=== PATIENT | male | born 1990 | race Caucasian/White ===

== ENCOUNTER 2017-06-15 19:16 | Emergency (ER) | payer MEDICAID ==
[~2017-06-15] VITALS: Ht 167.6 cm; Wt 59.0 kg
[2017-06-15] MEDS ORDERED: ALPRAZOLAM 2 MG (19:39)
--- NOTE | 2017-06-15 19:40 | NUR ---
PT STATES HE HAS A HX OF ANXIETY/PANIC ATTACKS FOR WHICH HE TAKES 2MG ALPRAZOLAM. PT ALSO STATES HE HAD RAN OUT OF MED, AND REQUESTS A REFILL. ARRIVED TO ER AFTER EXPERIENCING A PANIC ATTACK TODAY WHILE DRIVING ON [employer].
--- NOTE | 2017-06-15 20:25 | NUR ---
DARIA MOSS AT BEDSIDE FOR MSE.
--- NOTE | 2017-06-15 20:35 | NUR ---
Patient discharged to home in stable conditon. Written and verbal after care instructions given. Patient verbalizes understanding of instructions. Ambulated from ER w/ steady gait. Pt took all personal belongings.
[2017-06-15 20:39] VITALS: BP 147/74
== END 2017-06-15 20:40 | disposition home or self-care (01) ==
LOC: ER 19:18
DX: F41.9 Anxiety disorder, unspecified (principal)
CPT/HCPCS: A4663

== ENCOUNTER 2018-01-06 20:06 | Emergency (ER) | payer SELFPAY ==
[~2018-01-06] VITALS: Ht 170.2 cm; Wt 56.7 kg
[~2018-01-06 20:06] MED LIST: ALPRAZOLAM 2 MG
--- NOTE | 2018-01-06 21:30 | NUR ---
Called patient to be triaged. Patient not present
--- NOTE | 2018-01-07 00:14 | NUR ---
Xray at bedside.
--- NOTE | 2018-01-07 02:03 | NUR ---
Patient discharged to home in stable conditon. Written and verbal after care instructions given. Patient verbalizes understanding of instructions. Pt ambulated out of ER with steady gait, no acute signs of distress, VSS, all belongings taken.
[2018-01-07 02:52] VITALS: BP 143/83
== END 2018-01-07 02:05 | disposition home or self-care (01) ==
LOC: ER 20:08
DX: S69.91XA Unspecified injury of right wrist, hand and finger(s), initial encounter (principal); M20.021 Boutonniere deformity of right finger(s); F12.10 Cannabis abuse, uncomplicated; F15.10 Other stimulant abuse, uncomplicated; F17.200 Nicotine dependence, unspecified, uncomplicated; V19.9XXA Pedal cyclist (driver) (passenger) injured in unspecified traffic accident, initial encounter; Y93.89 Activity, other specified; Y92.89 Other specified places as the place of occurrence of the external cause; Y99.8 Other external cause status
CPT/HCPCS: 29130; 73140; 99284; A4663

== ENCOUNTER 2018-01-15 00:40 | Emergency (ER) | payer SELFPAY ==
[~2018-01-15] VITALS: Ht 167.6 cm; Wt 54.4 kg
--- NOTE | 2018-01-15 01:30 | NUR ---
Patient walked into ER requesting for pain med Rx and right ring finger splint. Patient was seen here several days ago for finger injury and had finger splint placed which patient stateshe lost lost.
--- NOTE | 2018-01-15 01:55 | NUR ---
Patient given written and verbal discharge instructions. Patient verbalizes understanding of instructions. Patient is ambulatory with steady gait. Refuses offer of fpc placement. Patient given list of available shelters in surrounding area.
== END 2018-01-15 01:55 | disposition home or self-care (01) ==
LOC: ER 00:45
DX: M20.021 Boutonniere deformity of right finger(s) (principal); F17.200 Nicotine dependence, unspecified, uncomplicated; F12.10 Cannabis abuse, uncomplicated; F15.10 Other stimulant abuse, uncomplicated
CPT/HCPCS: A4663

== ENCOUNTER 2018-05-05 19:13 | Emergency (ER) | payer SELFPAY ==
[~2018-05-05] VITALS: Ht 167.6 cm; Wt 54.4 kg
--- NOTE | 2018-05-05 19:24 | NUR ---
PT A/OX4, PRESENTS TO THE ER C/O ANXIETY. PT IS CALM AND COOPERATIVE AT THIS TIME. PT RESTING COMFORTABLY IN BED. DOES NOT APPEAR TO BE IN ANY APPARENT DISTRESS. PT DENIES PAIN, C/P, SOB, N/V/D, DIZZINESS, HEADACHE.
--- NOTE | 2018-05-05 19:40 | NUR ---
DARIA MOSS AT BEDSIDE FOR MSE.
[2018-05-05] MEDS ORDERED: ALPRAZOLAM 0.25 MG TABLET PO ONE (19:45)
[2018-05-05] MEDS ORDERED: ALPRAZOLAM 0.5 MG TABLET ONE (19:49)
--- NOTE | 2018-05-05 19:51 | NUR ---
Patient discharged to home in stable conditon. Written and verbal after care instructions given. Patient verbalizes understanding of instructions. PT D/C W/ PRESCRIPTION. ALL BELONGINGS W/ PT. PT SELF-AMBULATED W/O DIFFICULTY.
[2018-05-05 19:52] VITALS: BP 140/77
--- NOTE | 2018-05-05 19:52 | NUR ---
PT PROVIDED W/ SANDWICH AND JUICE. PT STATES HE WILL ARRANGE FOR HIS OWN TRANSPORTATION W/ FRIEND, VERITO MARQUIS. PT ALSO STATES HE IS GOING TO RETURN TO HIS PREVIOUS LIVING ARRANGEMENT W/ VERITO CHO. RESOURCES TO CLINICS AND SHELTERS PROVIDED, PT REFUSED.
== END 2018-05-05 19:56 | disposition home or self-care (01) ==
LOC: ER 19:14
DX: F41.8 Other specified anxiety disorders (principal); F17.200 Nicotine dependence, unspecified, uncomplicated; F12.10 Cannabis abuse, uncomplicated; F15.10 Other stimulant abuse, uncomplicated; Z59.0 Homelessness
CPT/HCPCS: A4663

== ENCOUNTER 2019-12-08 16:28 | Emergency (ER) | payer OTHER ==
[~2019-12-08] VITALS: Ht 170.2 cm; Wt 56.7 kg
[2019-12-08] MEDS ORDERED: SULFAMETH/TRIMETH 800/160 MG TABLET PO ONE (18:00)
--- NOTE | 2019-12-08 18:01 | NUR ---
Patient discharged to home in stable condition. Written and verbal after care instructions given. Patient verbalizes understanding of instructions. Stressed follow up or return to ER for worsening s/s. Patient ambulating with steady gait. NAD noted
[2019-12-08] MEDS ORDERED: SULFAMETH/TRIMETH 800/160 MG TABLET ONE (18:02)
[2019-12-08 18:44] VITALS: BP 124/83
== END 2019-12-08 18:01 | disposition home or self-care (01) ==
LOC: ER 16:29
DX: L03.119 Cellulitis of unspecified part of limb (principal); Z59.0 Homelessness; F17.200 Nicotine dependence, unspecified, uncomplicated
CPT/HCPCS: A4663

== ENCOUNTER 2024-05-06 19:51 | Emergency (ER) | payer OTHER ==
[~2024-05-06] VITALS: Ht 182.9 cm; Wt 63.5 kg
[2024-05-07] MEDS ORDERED: PRED50TA PO (02:13)
[2024-05-07] MEDS ORDERED: ALBU8.5H8 INH (02:13)
[2024-05-07] MEDS: predniSONE 50 MG TABLET PO ONE (02:30)
[2024-05-07] MEDS ORDERED: AZIT500T2 PO (02:40)
[2024-05-07] MEDS ORDERED: predniSONE 50 MG TABLET ONE (02:40)
[2024-05-07 05:00] VITALS: BP 121/67; TEMP 97.9; O2SAT 97
== END 2024-05-07 02:40 | disposition home or self-care (01) ==
LOC: ER 19:51
DX: J45.901 Unspecified asthma with (acute) exacerbation (principal); R04.2 Hemoptysis; F12.90 Cannabis use, unspecified, uncomplicated; F17.200 Nicotine dependence, unspecified, uncomplicated; Z59.00 Homelessness unspecified; Z79.52 Long term (current) use of systemic steroids
CPT/HCPCS: 99283; 71045; J7512; A4606; A4663

== ENCOUNTER 2024-06-01 03:05 | Emergency (ER) | payer OTHER ==
[~2024-06-01] VITALS: Ht 172.7 cm; Wt 58.1 kg
[~2024-06-01 03:05] MED LIST changes: +ALBU8.5H8 INH; +AZIT500T2 PO; +PRED50TA PO
[2024-06-01] MEDS ORDERED: KETOROLAC TROMETHAMINE 15 MG INJ ONE (06:07)
[2024-06-01] MEDS ORDERED: CLINDAMYCIN 600 MG PIGGYBACK**ER OMNI IV ONE (06:08)
[2024-06-01] MEDS: CLINDAMYCIN PHOSPHATE IV 600 MG in IV DEXTROSE 5% 100 ML IV ONE (06:11)
[2024-06-01 06:19] LABS: BASOPHILS # (AUTO) 0.1 K/UL (0.0-0.2); BASOPHILS % (AUTO) 0.6 % (0.0-2.0); EOSINOPHILS # (AUTO) 0.2 K/uL (0.0-0.7); EOSINOPHILS % (AUTO) 2.3 % (0.0-7.0); HEMATOCRIT 39.9 % (36.7-47.1); HEMOGLOBIN 13.6 g/dL (12.5-16.3); LYMPHOCYTES # (AUTO) 2.3 K/uL (0.8-4.8); LYMPHOCYTES % (AUTO) 26.6 % (20.5-51.5); MEAN CORPUSCULAR HEMOGLOBIN 28.1 uug (23.8-33.4); MEAN CORPUSCULAR HGB CONC 34 g/dL (32.5-36.3); MEAN CORPUSCULAR VOLUME 82.7 fL (73.0-96.2); MONOCYTES # (AUTO) 0.8 K/uL (0.1-1.30); MONOCYTES % (AUTO) 9.2 % (0.0-11.0); NEUTROPHILS # (AUTO) 5.2 K/uL (1.8-8.9); NEUTROPHILS % (AUTO) 61.3 % (38.5-71.5); PLATELET COUNT (AUTO) 249 K/uL (152-348); RED BLOOD CELL COUNT(AUTO) 4.83 MIL/uL (4.06-5.63); RED CELL DISTRIBUTION WIDTH 13.2 % (12.1-16.2); WHITE BLOOD COUNT (AUTO) 8.5 K/uL (3.6-10.2)
[2024-06-01] MEDS: KETOROLAC TROMETHAMINE 15 MG INJ IVP ONE (06:20)
[2024-06-01 06:23] LABS: DIFFERENTIAL COMMENT 1
[2024-06-01 06:28] LABS: CALCIUM 8.9 mg/dL (8.5-10.1); CREATININE 0.8 mg/dL (0.6-1.3); POTASSIUM 4.6 mmol/L (3.5-5.1)
[2024-06-01 06:34] LABS: ALBUMIN 3.7 g/dL (3.4-5.0); BILIRUBIN,TOTAL 0.7 mg/dL (0.2-1.0); TOTAL PROTEIN, SERUM 7.8 g/dL (6.4-8.2)
[2024-06-01] MEDS ORDERED: CLIN300C12 PO (07:08)
[2024-06-01 07:56] VITALS: BP 134/66; O2SAT 99
== END 2024-06-01 07:57 | disposition home or self-care (01) ==
LOC: ER 03:18
DX: L03.116 Cellulitis of left lower limb (principal); R03.0 Elevated blood-pressure reading, without diagnosis of hypertension; L98.9 Disorder of the skin and subcutaneous tissue, unspecified; F12.90 Cannabis use, unspecified, uncomplicated; F17.200 Nicotine dependence, unspecified, uncomplicated; Z79.52 Long term (current) use of systemic steroids; Z59.00 Homelessness unspecified
CPT/HCPCS: 99284; 96365; 96375; 80053; 85025; 85610; 36415; 83605; J1885; J3490 ×2; A4606; A4663